=== PATIENT | female | born 2005 | race Caucasian/White ===

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

== ENCOUNTER 2024-01-03 02:54 | Inpatient (IN) | payer OTHER ==
[2024-01-03] MEDS ORDERED: Tranexamic Acid IN NACL,ISO-OS 1,000 MG in Premix Bag 1 BAG IV PRN (03:37)
[2024-01-03] MEDS ORDERED: Water For Irrigation,Sterile 1,000 ML Container IRR PRN (03:37)
[2024-01-03] MEDS ORDERED: Carboprost Tromethamine 250 MCG/1 mL Vial IM PRN (03:37)
[2024-01-03] MEDS ORDERED: Misoprostol 200 MCG Tab PO PRN (03:37)
[2024-01-03] MEDS ORDERED: Methylergonovine 0.2 MG/1 ML Amp IM PRN (03:37)
[2024-01-03] MEDS ORDERED: Lidocaine 1% 50 ML MDV INJECT PRN (03:37)
[2024-01-03] MEDS ORDERED: Sodium Chloride 0.9% 2.5 ML Syringe FLUSH PRN (03:37)
[2024-01-03] MEDS ORDERED: Sodium Chloride 0.9% 10 ML Syringe FLUSH PRN (03:37)
[2024-01-03] MEDS ORDERED: Sodium Chloride 0.9% 20 ML SDV IV PRN (03:37)
[2024-01-03] MEDS: Lactated Ringers 1,000 ML IV SCH (04:17)
[2024-01-03] MEDS: Ampicillin 2 GM in Sodium Chloride 0.9% 100 ML IV ONE (04:17)
[2024-01-03 04:26] LABS: HEMOGLOBIN 11.8 g/dL (12.0-16.0); MEAN CORPUSCULAR HEMOGLOBIN 27.9 pg (28.0-32.0); MEAN CORPUSCULAR HGB CONC 33.7 g/dL (32.0-36.0); MEAN CORPUSCULAR VOLUME 82.7 fL (83.0-99.0); PLATELET COUNT,PLT 295 K/uL (150-400); RED BLOOD CELL COUNT 4.23 M/uL (4.10-5.30); WHITE BLOOD CELL COUNT,WBC 12.14 K/uL (4.5-13.5)
[2024-01-03] MEDS: Butorphanol 2 MG/ML SDV IVPUSH PRN (05:15)
[2024-01-03] MEDS: Ondansetron 4 MG/2 ML SDV IVPUSH PRN (06:50)
[2024-01-03] MEDS ORDERED: ePHEDrine 50 MG/ML SDV IVPUSH PRN (07:10)
[2024-01-03] MEDS ORDERED: Phenylephrine HCl In 0.9% NaCl 1 MG/10 ML Syringe IVPUSH PRN (07:10)
[2024-01-03] MEDS ORDERED: dexmedeTOMIDine HCl 200 MCG/2 ML SDV EPIDUR SCH (07:15)
[2024-01-03] MEDS: Ropivacaine HCl/PF 400 MG in Premix Bag 1 BAG EPIDUR SCH (08:09)
[2024-01-03] MEDS: Ampicillin 1 GM in Sodium Chloride 0.9% 50 ML IV SCH (08:18)
[2024-01-03] MEDS ORDERED: Benzocaine/Menthol 20%-0.5% Spray 78 GM Cannister TOP PRN (15:00)
[2024-01-03] MEDS ORDERED: oxyCODONE 5 MG Tab PO PRN (15:00)
[2024-01-03] MEDS: Oxytocin/0.9 % Sodium Chloride 30 UNIT/500 ML BAG IV SCH (16:39)
[2024-01-03] MEDS: Witch Hazel Medicated Pads 40/Jar TOP PRN (18:22)
[2024-01-03] MEDS: Lanolin 100% Cream 7 GM Tube TOP PRN (18:22)
[2024-01-04] MEDS: Acetaminophen 500 MG Tab PO PRN (04:20)
[2024-01-04 06:45] LABS: HEMATOCRIT 30.1 % (37.0-47.0)
[2024-01-04] MEDS: Docusate Sodium 100 MG Cap PO PRN (08:11)
[2024-01-04] MEDS: Ibuprofen 800 MG Tab PO PRN (08:11)
[2024-01-04 18:30] VITALS: BP 115/82; PULSE 82
== END 2024-01-04 18:58 | disposition home or self-care (01) | DRG 806 ==
LOC: MW.OBCHECK 02:54 → MW.OB 02:55 → MW.OBCHECK 03:38 → MW.OB 03:38 → OBSVTOIN 03:38 → MW.OB 17:52
PROVIDERS: ADMIT Obstetrics & Gynecology; ATTEND Obstetrics & Gynecology Obstetrics
PROC: 10E0XZZ Delivery of Products of Conception, External Approach (ICD-10-PCS; principal; 2024-01-03)
DX: O42.02 Full-term premature rupture of membranes, onset of labor within 24 hours of rupture (principal); O98.42 Viral hepatitis complicating childbirth; Z37.0 Single live birth; Z3A.38 38 weeks gestation of pregnancy; B19.20 Unspecified viral hepatitis C without hepatic coma; O99.824 Streptococcus B carrier state complicating childbirth
CPT/HCPCS: 01967; 36415; 51702; 59025; 59409; 84112; 85014; 85018; 85027; 86592; 86850; 86900; 86901; A9270-GY; J0290; J0595; J2405; J2590; J2795; J3490; J7120